=== PATIENT | male | born 1990 | race African-American/Black ===

== ENCOUNTER 2020-02-13 13:21 | Emergency (ER) | payer OTHER ==
[~2020-02-13] VITALS: Ht 180.3 cm; Wt 104.5 kg
[2020-02-13 13:45] VITALS: BP 142/90
[2020-02-13] MEDS ORDERED: KETOROLAC TROMETHAMINE 60 MG/2 ML VIAL IM ONE (14:15)
== END 2020-02-13 14:42 | disposition home or self-care (01) ==
LOC: EMS 13:25
DX: S02.5XXA Fracture of tooth (traumatic), initial encounter for closed fracture (principal); F12.90 Cannabis use, unspecified, uncomplicated; X58.XXXA Exposure to other specified factors, initial encounter; Y93.89 Activity, other specified; Y92.89 Other specified places as the place of occurrence of the external cause; Y99.8 Other external cause status
CPT/HCPCS: 96372; 99283; J1885